=== PATIENT | male | born 1945 | race Caucasian/White ===

== ENCOUNTER 2020-08-23 10:44 | Emergency (ER) | payer MEDICARE ==
[2020-08-23 10:53] VITALS: BP 135/86; PULSE 105
--- NOTE | 2020-08-23 11:17 | EDM.PDOC ---
ED HPI GENERAL MEDICAL PROBLEM - General Chief Complaint: Respiratory Problem Stated Complaint: [facility] Time Seen by Provider: 08/23/20 10:50 Source of Information: Reports: Patient, EMS History Limitations: Reports: No Limitations - History of Present Illness INITIAL COMMENTS - FREE TEXT/NARRATIVE: 75-year-old male who was diagnosed with COVID-19 a week and a half ago, feels like he is worsening and not responding as well to his nebulizers and having increased difficulty breathing. Low-grade intermittent fevers, nausea and weakness but no vomiting. Some chest pain with coughing. Onset: Gradual (Feels he is worsening over the past several days) Quality: Reports: Ache Associated Symptoms: Reports: Chest Pain (With coughing only), Cough, Fever/Chills, Shortness of Breath - Related Data Allergies Allergy/AdvReac Type Severity Reaction Status Date / Time No Known Allergies Allergy Verified 08/23/20 10:54 Home Meds: Home Meds DULoxetine HCl [Duloxetine HCl] 60 mg PO DAILY 03/24/16 [History] Albuterol Sulfate [Proair Hfa] 1 puff IH ASDIRECTED 08/23/20 [History] Apixaban [Eliquis] 5 mg PO BID 08/23/20 [History] Cholecalciferol (Vitamin D3) [Vitamin D] 5,000 units PO DAILY 08/23/20 [History] Mirtazapine [Remeron] 15 mg PO BEDTIME 08/23/20 [History] Zinc 50 mg PO DAILY 08/23/20 [History] Past Medical History HEENT History: Reports: Hard of Hearing, Impaired Vision Respiratory History: Reports: PE Gastrointestinal History: Reports: GERD, Hiatal Hernia Musculoskeletal History: Reports: Arthritis, Back Pain, Chronic Neurological History: Reports: None Psychiatric History: Reports: Addiction, Anxiety, Depression Endocrine/Metabolic History: Reports: Obesity/BMI 30+ Hematologic History: Reports: Anticoagulation Therapy, Blood Transfusion(s) Oncologic (Cancer) History: Reports: Prostate - Infectious Disease History Infectious Disease History: Reports: Influenza, Novel Coronavirus, Other (See Below) Other Infectious Disease History: pnuemonia - Past Surgical History Head Surgeries/Procedures: Reports: None HEENT Surgical History: Reports: None Respiratory Surgical History: Reports: None GI Surgical History: Reports: None Endocrine Surgical History: Reports: None Neurological Surgical History: Reports: C-Spine Musculoskeletal Surgical History: Reports: Hip Replacement Oncologic Surgical History: Reports: None Dermatological Surgical History: Reports: None Social & Family History - Tobacco Use Tobacco Use Status *Q: Former Tobacco User Used Tobacco, but Quit: Yes Month/Year Tobacco Last Used: 1994 Second Hand Smoke Exposure: No - Caffeine Use Caffeine Use: Reports: Coffee, Soda - Recreational Drug Use Recreational Drug Use: No ED ROS GENERAL - Review of Systems Review Of Systems: See Below Constitutional: Reports: Fever, Chills, Malaise HEENT: Denies: Throat Pain Respiratory: Reports: Shortness of Breath, Wheezing, Cough. Denies: Sputum Cardiovascular: Reports: Chest Pain (With cough) GI/Abdominal: Denies: Abdominal Pain Skin: Reports: No Symptoms Neurological: Denies: Dizziness, Headache Psychiatric: Reports: No Symptoms ED EXAM, GENERAL - Physical Exam Exam: See Below Exam Limited By: No Limitations General Appearance: Alert, No Apparent Distress, Other (Very stable and fairly comfortable on 2 L of nasal cannula oxygen) Head: Atraumatic Respiratory/Chest: No Respiratory Distress, Rhonchi (Few basilar rhonchi, some decreased breath sounds in the right base) Cardiovascular: Regular Rate, Rhythm GI/Abdominal: Soft, Non-Tender Extremities: Normal Inspection Neurological: Alert, Oriented Psychiatric: Normal Affect, Normal Mood Skin Exam: Warm, Dry Course - Vital Signs Last Recorded V/S: Last Vital Signs Temp 100 F 08/23/20 10:52 Pulse 105 H 08/23/20 10:52 Resp 22 H 08/23/20 10:52 BP 135/86 08/23/20 10:52 Pulse Ox 96 08/23/20 10:52 - Orders/Labs/Meds Labs: Laboratory Tests 08/23/20 08/23/20 Range/Units 11:10 11:10 WBC 2.0 L (4.5-11.0) K/uL RBC 3.73 L (4.30-5.90) M/uL Hgb 12.1 D (12.0-15.0) g/dL Hct 36.5 L (40.0-54.0) % MCV 98 (80-98) fL MCH 32 H (27-31) pg MCHC 33 (32-36) % Plt Count 218 (150-400) K/uL Neut % (Auto) 84 H (36-66) % Lymph % (Auto) 14 L (24-44) % Daggett % (Auto) 1 L (2-6) % Eos % (Auto) 1 L (2-4) % Baso % (Auto) 0 (0-1) % Sodium 135 L (140-148) mmol/L Potassium 4.1 (3.6-5.2) mmol/L Chloride 101 (100-108) mmol/L Carbon Dioxide 21 (21-32) mmol/L Anion Gap 17.1 H (5.0-14.0) mmol/L BUN 20 H D (7-18) mg/dL Creatinine 1.3 (0.8-1.3) mg/dL Est Cr Clr Drug Dosing 50.69 mL/min Estimated GFR (MDRD) 54 L (>60) Glucose 114 H (74-106) mg/dL Calcium 9.0 (8.5-10.1) mg/dL Meds: Medications Discontinued Medications Generic Name Dose Route Start Last Admin Trade Name Freq PRN Reason Stop Dose Admin Acetaminophen 1,000 mg 08/23/20 13:07 08/23/20 13:14 Tylenol Extra Strength PO 08/23/20 13:08 1,000 mg ONETIME ONE Administration - Re-Assessments/Exams Free Text/Narrative Re-Assessment/Exam: 08/23/20 11:19 While on the medical support specialist the patient did have a run of atrial fibrillation for about a minute and a half, rapid ventricular response. He then converted to bigeminy for 10 seconds and then back to normal sinus rhythm. A 2 view chest x-ray, CBC and BMP were ordered. [facility] was [facility] for possible transfer if needed. 08/23/20 12:12 White count is 2000, hemoglobin normal. Chest x-ray shows faint infiltrate possible in the right lower lobe otherwise clear. Patient continued to need O2 support so [facility] was contacted and accepted the patient at 12:00 PM, Dr. Osman. Transportation will be arranged. Departure - Departure Time of Disposition: 13:18 Disposition: DC/Tfer to Other Clinical Impression: Pneumonia due to 2019 novel coronavirus - Discharge Information Referrals: PCP,None [Primary Care Provider] - Forms: ED Department Discharge Care Plan Goals: Patient will be transferred by EMS to [facility] for further evaluation and treatment of complications from COVID-19 pneumonia. Sepsis Event Note (ED) - Evaluation Sepsis Screening Result: Possible Sepsis Risk - Focused Exam Vital Signs: Vital Signs Temp Pulse Resp BP Pulse Ox 08/23/20 10:52 100 F 105 H 22 H 135/86 96 08/23/20 10:48 100 F 105 H 22 H 135/86 96
--- NOTE | 2020-08-23 12:26 | CR ---
CHEST: 2 view CLINICAL HISTORY:Dyspnea COMPARISON:2007 FINDINGS: Heart size and pulmonary vascularity are normal. There are atherosclerotic changes in the aorta. There is some mild prominence of the interstitial lung markings in both lung bases, right greater than left. This may represent some patchy atelectasis or fibrosis. The right lower lobe infiltrate is felt less likely but not excluded. IMPRESSION: Increased lung markings in both bases, greater on the right. This may be chronic. Superimposed early infiltrate is felt less likely but not excluded.
[2020-08-23] MEDS ORDERED: Acetaminophen 500 MG Tab PO ONE (13:07)
== END 2020-08-23 13:19 | disposition other institution (70) ==
LOC: JP.ED 10:44
DX: U07.1 COVID-19 (principal); J12.89 Other viral pneumonia; K21.9 Gastro-esophageal reflux disease without esophagitis; M19.90 Unspecified osteoarthritis, unspecified site; F41.9 Anxiety disorder, unspecified; F32.9 Major depressive disorder, single episode, unspecified; E66.9 Obesity, unspecified; Z87.891 Personal history of nicotine dependence; Z68.35 Body mass index [BMI] 35.0-35.9, adult; Z79.01 Long term (current) use of anticoagulants; Z79.899 Other long term (current) drug therapy; Z86.711 Personal history of pulmonary embolism
CPT/HCPCS: 36415; 71046; 80048; 85025; 99285; A9270

== ENCOUNTER 2024-05-02 01:46 | Inpatient (IN) | payer MEDICARE ==
[2024-05-02] MEDS: Albuterol/Ipratropium 3.0-0.5 MG/3 ML Neb Soln NEB ONE (01:56)
[2024-05-02] MEDS: methylPREDNISolone Sodium Succinate 125 MG/2 ML SDV IVPUSH ONE (01:56)
[2024-05-02 01:59] LABS: BASOPHILS PERCENT AUTO 0.3 % (0.1-1.3); EOSINOPHILS ABSOLUTE AUTO 0.19 K/uL (0.00-0.40); EOSINOPHILS PERCENT AUTO 3.1 % (0.0-5.4); HEMATOCRIT 36.6 % (38.4-49.7); HEMOGLOBIN 12.5 g/dL (12.9-16.9); IMMATURE GRAN PERCENT AUTO 0.3 % (0.0-0.7); LYMPHOCYTES ABSOLUTE AUTO 0.47 K/uL (0.8-3.3); LYMPHOCYTES PERCENT AUTO 7.8 % (11.4-47.7); MEAN CORPUSCULAR HEMOGLOBIN 33.3 pg (31.6-35.5); MEAN CORPUSCULAR HGB CONC 34.2 g/dL (31.6-35.5); MEAN CORPUSCULAR VOLUME 97.6 fL (81.4-99.0); MONOCYTES ABSOLUTE AUTO 0.56 K/uL (0.20-0.90); MONOCYTES PERCENT AUTO 9.3 % (3.3-12.6); NEUTROPHILS ABSOLUTE AUTO 4.79 K/uL (1.0-7.6); NEUTROPHILS PERCENT AUTO 79.2 % (40.0-78.1); PLATELET COUNT,PLT 148 K/uL (130-375); RED BLOOD CELL COUNT 3.75 M/uL (4.14-5.76); WHITE BLOOD CELL COUNT,WBC 6.1 K/uL (3.2-11.0)
[2024-05-02 02:01] LABS: BASOPHILS ABSOLUTE AUTO 0.02 K/uL (0.00-0.10); IMMATURE GRAN ABSOLUTE AUTO 0.02 K/uL (0.00-0.23)
[2024-05-02 02:19] LABS: A/G RATIO 0.9 (1.2-2.2); ALANINE AMINOTRANSFERASE,ALT 40 U/L (12-78); ALBUMIN 3.4 g/dL (3.4-5.0); ALKALINE PHOSPHATASE 103 U/L (46-116); ANION GAP 12.2 mmol/L (5.0-14.0); ASPARTATE AMNIOTRANSFERASE,AST 32 U/L (15-37); BILIRUBIN TOTAL 0.6 mg/dL (0.2-1.0); BLOOD UREA NITROGEN,BUN 16 mg/dL (7-18); CALCIUM 8.9 mg/dL (8.5-10.1); CARBON DIOXIDE,CO2 25 mmol/L (21-32); CHLORIDE,CL 109 mmol/L (100-108); CREATININE 1.4 mg/dL (0.8-1.3); ESTIMATED GFR 51 mL/min (>60); GLUCOSE RANDOM 124 mg/dL (74-106); POTASSIUM,K 4.2 mmol/L (3.6-5.2); PROTEIN TOTAL,TP 7.1 g/dL (6.4-8.2); SODIUM,NA 142 mmol/L (140-148)
[2024-05-02] MEDS ORDERED: Ondansetron 4 MG Tab.DIS PO PRN (03:12)
[2024-05-02] MEDS ORDERED: Magnesium Hydroxide 400 MG/5 ML Susp 30 ML Cup PO PRN (03:12)
[2024-05-02] MEDS ORDERED: Albuterol 0.083% 2.5 MG/3 ML Neb Soln NEB PRN (03:12)
[2024-05-02] MEDS ORDERED: Ondansetron 4 MG/2 ML SDV IV PRN (03:12)
[2024-05-02] MEDS ORDERED: Acetaminophen 325 MG Tab PO PRN (03:12)
[2024-05-02] MEDS ORDERED: Melatonin 3 MG Tab PO PRN (03:12)
[2024-05-02] MEDS ORDERED: Sennosides/Docusate Sodium 50-8.6 MG Tab PO PRN (03:12)
[2024-05-02] MEDS: cefTRIAXone 1 GM in Sodium Chloride 0.9% 50 ML IV SCH (03:55)
[2024-05-02] MEDS: Apixaban 5 MG Tab PO SCH (05:50)
[2024-05-02] MEDS: Albuterol/Ipratropium 3.0-0.5 MG/3 ML Neb Soln NEB SCH (07:00)
[2024-05-02] MEDS: Metoprolol Succinate 25 MG Tab.ER PO SCH (09:08)
[2024-05-02] MEDS: DULoxetine 30 MG Cap PO SCH (09:08)
[2024-05-02] MEDS: Apixaban 2.5 MG Tab PO SCH (09:09)
[2024-05-02] MEDS: Furosemide 40 MG Tab PO SCH (09:09)
[2024-05-02] MEDS: predniSONE 20 MG Tab PO SCH (09:09)
[2024-05-02] MEDS: Lactobacillus Rhamnosus GG (Probiotic) Cap PO SCH (09:09)
[2024-05-02] MEDS: Mirtazapine 15 MG Tab PO SCH (09:09)
[2024-05-02] MEDS ORDERED: methylPREDNISolone Sodium Succinate 125 MG/2 ML SDV IVPUSH SCH (10:00)
[2024-05-02 14:10] VITALS: BP 121/61; PULSE 78
[2024-05-02] MEDS ORDERED: Latanoprost 0.005% Ophth Soln 2.5 ML Bottle EYEBOTH SCH (21:00)
== END 2024-05-02 14:28 | disposition home or self-care (01) | DRG 189 ==
LOC: JP.ED 01:46 → JP.MS 02:57
PROVIDERS: ADMIT Registered Nurse; ATTEND Internal Medicine
DX: J96.21 Acute and chronic respiratory failure with hypoxia (principal); J44.0 Chronic obstructive pulmonary disease with (acute) lower respiratory infection; J44.1 Chronic obstructive pulmonary disease with (acute) exacerbation; I25.10 Atherosclerotic heart disease of native coronary artery without angina pectoris; K21.9 Gastro-esophageal reflux disease without esophagitis; M19.90 Unspecified osteoarthritis, unspecified site; M54.9 Dorsalgia, unspecified; G89.29 Other chronic pain; F41.9 Anxiety disorder, unspecified; F32.A Depression, unspecified; E66.9 Obesity, unspecified; Z96.649 Presence of unspecified artificial hip joint; F17.210 Nicotine dependence, cigarettes, uncomplicated; I10 Essential (primary) hypertension; H40.9 Unspecified glaucoma; H91.90 Unspecified hearing loss, unspecified ear; H54.7 Unspecified visual loss; Z87.01 Personal history of pneumonia (recurrent); Z79.01 Long term (current) use of anticoagulants; Z79.899 Other long term (current) drug therapy; Z86.711 Personal history of pulmonary embolism; Z68.34 Body mass index [BMI] 34.0-34.9, adult; Z86.16 Personal history of COVID-19; Z86.718 Personal history of other venous thrombosis and embolism
CPT/HCPCS: 36415; 71045 ×2; 80053; 85025; 94640 ×3; J2919; U0002; 96374; 99235; 99285; 99285-25; A9270-GY; J0696; J3490; J7512; J7620